=== PATIENT | male | born 1960 | race Caucasian/White ===

== ENCOUNTER 2019-03-06 13:15 | Emergency (ER) | payer OTHER, SELFPAY ==
[2019-03-06] MEDS ORDERED: Ketorolac Tromethamine 30 MG/ML VIAL ONE ×2 (15:01→15:08)
--- NOTE | 2019-03-06 15:29 | RAD ---
LEFT SHOULDER THREE VIEWS: HISTORY: Pain. COMPARISON: None. FINDINGS: No fracture or dislocation. Glenohumeral joint space is preserved. The visualized left ribs are unr emarkable. IMPRESSION: Unremarkable three views left shoulder. POS: [facility]
== END 2019-03-06 15:33 | disposition home or self-care (01) ==
LOC: ERS 13:15
DX: M25.512 Pain in left shoulder (principal); Z87.891 Personal history of nicotine dependence
CPT/HCPCS: 96372; J1885

== ENCOUNTER 2021-01-08 13:43 | Outpatient (CLI) | payer OTHER | END 2021-01-08 13:44 | disposition home or self-care (01) | LOC: BICRAD 13:43 | PROVIDERS: ATTEND Family Medicine | DX: M54.5 Low back pain (principal); M47.816 Spondylosis without myelopathy or radiculopathy, lumbar region | CPT/HCPCS: 72100 ==

== ENCOUNTER 2021-02-12 07:12 | Outpatient (CLI) | payer OTHER | END 2021-02-12 07:13 | disposition home or self-care (01) | LOC: EEVIPCON 07:12 → ULT 07:12 | PROVIDERS: ATTEND Family Medicine | DX: K76.9 Liver disease, unspecified (principal); R93.5 Abnormal findings on diagnostic imaging of other abdominal regions, including retroperitoneum; K76.0 Fatty (change of) liver, not elsewhere classified | CPT/HCPCS: 93975 ==